=== PATIENT | male | born 1970 | race Caucasian/White ===

== ENCOUNTER → 2017-04-06 | Outpatient (CLI) | payer BC ==
--- NOTE | 2017-04-06 14:15 | RADIOLOGY REPORT (SQ) ---
EXAM DESCRIPTION: MRI LT LOWER JOINT WITHOUT COMPLETED DATE/TIME: 04/06/2017 1:35 pm REASON FOR STUDY: BUCKET HANDLE TEAR OF MEDIAL MENISCUS LEFT KNEE S83.212D BUCKET-HNDL TEAR OF MEDI AL MENSC, CRNT INJURY, L KN COMPARISON: None. TECHNIQUE: Leftknee images acquired and stored on PACS. Multiplanar images include fat sensitive se quences as T1, water sensitive sequences as FST2 or STIR, cartilage sensitive sequences as FSPD, and gradient echo sequences. LIMITATIONS: None. FINDINGS: JOINT AND BURSAE: Moderate joint effusion. Ovoid probable loose body in the anterior join t measures over 1 cm. BONE CORTEX AND MARROW: No fracture or worrisome bone lesion. Subcentimeter geographic hyperintense T2 slightly lobulated lesion in the femoral shaft laterally. Probable enchondroma. ACL: Intact. No degeneration or ganglion cyst. PCL: Intact. MCL: Intact. LCL: Intact. MEDIAL MENISCUS: Extensive tear. Prominent horizontal portion extends throughout the posterior menis cus root, posterior horn and into the body. Breech of the inferior articular surface. There is lobu lated tissue projecting posteriorly into the notch which may represent a displaced meniscus fragment. LATERAL MENISCUS: No tears. No abnormal signal. MEDIAL COMPARTMENT: No chondral defects. LATERAL COMPARTMENT: No chondral defects. PATELLA: No chondromalacia. No subchondral cysts. Medial and lateral retinacula intact. EXTENSOR MECHANISM: Intact. Quadriceps and patella tendons normal. SOFT TISSUES: Small Logan's cyst. Appropriate vascular flow voids. OTHER: No other significant finding. IMPRESSION: 1. Extensive medial meniscus tear with probable centrally displaced bucket-handle fragme nt. 2. Joint effusion. Probable loose bodies in the joint. TECHNICAL DOCUMENTATION: JOB ID: [id number]- All Rights Reserved
== END ==
LOC: RAD 12:24
PROVIDERS: ATTEND Family Medicine
DX: S83.212D Bucket-handle tear of medial meniscus, current injury, left knee, subsequent encounter (principal); M25.462 Effusion, left knee

== ENCOUNTER 2017-04-21 10:32 | Day surgery (SDC) | payer BC ==
[2017-04-18 12:01] LABS: APPEARANCE,URINE CLEAR; BILIRUBIN,URINE NEGATIVE (NEGATIVE); GLUCOSE, URINE NEGATIVE (NEGATIVE); KETONES,URINE NEGATIVE (NEGATIVE); LEUKOCYTE ESTERASE,URINE NEGATIVE (NEGATIVE); NITRITE,URINE NEGATIVE (NEGATIVE); PROTEIN,URINE NEGATIVE (NEGATIVE); URINE SPECIFIC GRAVITY 1.013; UROBILINOGEN,URINE NEGATIVE mg/dL (<2.0)
[2017-04-18 12:10] LABS: ABSOLUTE EOSINOPHILS # (AUTO) 0.1 10^3/uL (0.0-0.6); ABSOLUTE LYMPHOCYTES (AUTO) 1.3 10^3/uL (0.5-4.7); ABSOLUTE MONOCYTES (AUTO) 0.8 10^3/uL (0.1-1.4); ABSOLUTE NEUT (AUTO) 8.8 10^3/uL (1.7-8.2); BASOPHILS % (AUTO) 0.3 % (0-2); HEMATOCRIT 45.2 % (37.9-51.0); HEMOGLOBIN 16.4 g/dL (13.5-17.0); LYMPHOCYTES % (AUTO) 11.4 % (13-45); MEAN CORPUSCULAR HEMOGLOBIN 31.3 pg (27.0-33.4); MEAN CORPUSCULAR HGB CONC 36.1 g/dL (32.0-36.0); MEAN CORPUSCULAR VOLUME 87 fl (80-97); MONOCYTES % (AUTO) 7.6 % (3-13); RED BLOOD COUNT 5.23 10^6/uL (4.35-5.55); RED CELL DISTRIBUTION WIDTH 13.1 % (11.5-14.0); SEGMENTED NEUTROPHILS % (AUTO) 79.7 % (42-78); WHITE BLOOD COUNT 11.1 10^3/uL (4.0-10.5)
[2017-04-18 12:35] LABS: ANION GAP 15 (5-19); BLOOD UREA NITROGEN 11 mg/dL (7-20); CALCIUM 9.6 mg/dL (8.4-10.2); CARBON DIOXIDE 27 mmol/L (22-30); CHLORIDE 101 mmol/L (98-107); CREATININE RESULT 0.77 mg/dL (0.52-1.25); GLUCOSE 93 mg/dL (75-110); POTASSIUM 4.3 mmol/L (3.6-5.0); SODIUM 142.6 mmol/L (137-145)
--- NOTE | 2017-04-18 13:04 | EKG REPORT ---
SEVERITY:- NORMAL ECG - SINUS RHYTHM : Confirmed by: bD Henriquez MD 18-Apr-2017 13:03:38
--- NOTE | 2017-04-18 14:57 | RADIOLOGY REPORT (SQ) ---
EXAM DESCRIPTION: CHEST PA/LATERAL COMPLETED DATE/TIME: 04/18/2017 11:41 am REASON FOR STUDY: PRE OP COMPARISON: None. EXAM PARAMETERS: NUMBER OF VIEWS: two views TECHNIQUE: Digital Frontal and Lateral radiographic views of the chest acquired. RADIATION DOSE: NA LIMITATIONS: none FINDINGS: LUNGS AND PLEURA: No opacities, masses or pneumothorax. No pleural effusion. MEDIASTINUM AND HILAR STRUCTURES: No masses or contour abnormalities. HEART AND VASCULAR STRUCTURES: Heart normal size. No evidence for failure. BONES: No acute findings. HARDWARE: None in the chest. OTHER: No other significant finding. IMPRESSION: NO SIGNIFICANT RADIOGRAPHIC FINDING IN THE CHEST. TECHNICAL DOCUMENTATION: JOB ID: [id number] [employer]- All Rights Reserved
[~2017-04-21 10:32] MED LIST: BUPIVACAINE HCL 0.5 % INJ/PF 30 ML SDV ONE; CEFAZOLIN 2 GM/D5W RTU 2 GM/50 ML RTUPB IV PRN; LACTATED RINGERS 1000 ML IV PRN; LIDOCAINE 0.5% INJ-PF (5 MG/ML) 50 ML SDV SUBCUT PRN
[2017-04-21] MEDS ORDERED: FAMOTIDINE INJ/PF 20 MG/2 ML SDV IV ONE (11:59)
[2017-04-21] MEDS ORDERED: SCOPOLAMINE HYDROBROMIDE 1.5 MG PATCH.TD72 ONE (11:59)
[2017-04-21] MEDS ORDERED: MIDAZOLAM 2 MG/2 ML INJ ONE ×2 (11:59→12:38)
[2017-04-21] MEDS ORDERED: PROPOFOL INJ 200 MG/20 ML VIAL IV ONE (12:38)
[2017-04-21] MEDS ORDERED: ONDANSETRON HCL INJ/PF 4 MG/2 ML SDV ONE (12:38)
[2017-04-21] MEDS ORDERED: HYDROMORPHONE HCL INJ/PF 2 MG/ML AMPULE ONE (12:39)
[2017-04-21] MEDS ORDERED: ACETAMINOPHEN 100 ML IV ONE (12:39)
[2017-04-21] MEDS ORDERED: FENTANYL CITRATE INJ/PF 100 MCG/2 ML AMPUL IV PRN ×3 (13:52)
[2017-04-21] MEDS ORDERED: DIPHENHYDRAMINE HCL 50 MG/ML VIAL IV PRN (13:52)
[2017-04-21] MEDS ORDERED: MEPERIDINE HCL/PF INJ 25 MG/1 ML DISP.SYRIN IV PRN (13:52)
[2017-04-21] MEDS ORDERED: PROMETHAZINE HCL INJ 25 MG/1 ML VIAL IV PRN (13:52)
--- NOTE | 2017-04-21 14:52 | Operative Report ---
Operative Report DATE OF SURGERY: 04/21/17 PREOPERATIVE DIAGNOSIS: Left knee medial meniscus bucket-handle tear POSTOPERATIVE DIAGNOSIS: Same OPERATION: Left knee arthroscopic partial medial meniscectomy SURGEON: RITU WAKEFIELD ANESTHESIA: GA TISSUE REMOVED OR ALTERED: Meniscal shavings COMPLICATIONS: None ESTIMATED BLOOD LOSS: Less than 10 mL INTRAOPERATIVE FINDINGS: As above PROCEDURE: Patient was brought to the operating room and induced and intubated in supine position. A tourniquet was applied to the left lower extremity. Timeout was done identifying the left knee was the correct site. .25% plain Marcaine was injected into anticipated portal sites. The extremity was elevated and the tourniquet was inflated at 300 mmHg. 11 blade was used to establish the anterolateral portal. Scope was introduced. At this point I established my anteromedial portal. Diagnostic scope was done showing the patient had pristine patellofemoral compartment with no evidence of chondromalacia. I turned my attention to the medial compartment where I noted a bucket-handle complex tear of the medial meniscus. Bucket-handle piece was in the notch. Pictures were taken showing the tear. I used the meniscal biter and 4.0mm shaver to resect majority of the mid body to posterior horn of the medial meniscus. Shaver smooth out the edges of the meniscus which gave a good stable construct. I this point redirected my camera to the notch and visualized the anterior cruciate ligament graft which was intact as well as the PCL which showed to be intact. I then placed the extremity in a [id number] and at this point saw the lateral meniscus was intact with no noticeable tears. Popliteal hiatus was intact. Articular cartilage also was pristine with no evidence of chondromalacia or wear. At this point the fluid of the knee was removed and I proceeded to close the 2 portal sites with 3-0 nylon. Tourniquet was let down. The portal sites were covered with Xeroform 4 x 4 dressing and ABD pad followed by a soft roll. I overwrapped it with an Tor bandage. Drapes were cut and removed. Patient was successfully extubated and sent to PACU in stable condition.
[2017-04-21] MEDS ORDERED: OXYCODONE-ACETAMINOPHEN 5-325 MG TABLET PO PRN (15:05)
--- NOTE | 2017-04-21 15:05 | PDOC DISCHARGE SUMMARY ---
Discharge Summary (SDC) - Discharge Final Diagnosis: Left knee partial medial meniscectomy Date of Surgery: 04/21/17 Discharge Date: 04/21/17 Condition: Good Treatment or Instructions: Patient instructed to follow up in 10-14 days. Patient instructed to keep dressing dry clean and intact for 4 days and then allowed to remove. At that point patient can shower and apply Band-Aids as needed. Patient can weight-bear as tolerated and do range of motion exercises as tolerated. Crutches for support and safety. Can wean crutches once stable on his feet. Patient instructed to call the office if patient develops fevers chills redness and drainage from the surgical sites. Prescriptions: Tramadol HCl [Ultram 50 mg Tablet] 50 mg PO Q6HP PRN #40 tablet PRN Reason: Referrals: ABEBE PHILLIPS DO [Primary Care Provider] - Discharge Diet: As Tolerated Respiratory Treatments at Home: Deep Breathing/Coughing Discharge Activity: No Driving - While taking narcotics, Keep Legs Elevated, No Lifting/Push/Pulling Home Care Assistance: None Needed Adaptive Devices on Discharge: Axillary Crutches - If needed Report the Following to Your Physician Immediately: Shortness of Breath, Vomiting, Increase in Pain, Fever over 101 Degrees, Unusual Bleeding, Redness, Swelling, Warmth, Increased Soreness, Drainage-Yellow, Drainage-Slater, Drainage- Green, Drainage-Foul Smelling
[2017-04-21] MEDS ORDERED: OXYCODONE-ACETAMINOPHEN 5-325 MG TABLET ONE (15:09)
[2017-04-21] MEDS ORDERED: ONDANSETRON 4 MG TAB.RAPDIS ONE (16:32)
[2017-04-21 16:49] VITALS: BP 135/91
== END 2017-04-21 16:40 | disposition home or self-care (01) ==
LOC: OROUT 10:32
PROVIDERS: ATTEND Orthopaedic Surgery
PROC: 0SBD4ZZ Excision of Left Knee Joint, Percutaneous Endoscopic Approach (ICD-10-PCS; principal; 2017-04-21 12:45)
DX: S83.212D Bucket-handle tear of medial meniscus, current injury, left knee, subsequent encounter (principal); Z79.899 Other long term (current) drug therapy; X58.XXXD Exposure to other specified factors, subsequent encounter; K21.9 Gastro-esophageal reflux disease without esophagitis
CPT/HCPCS: 93005; 36415; 85025; 80048; 81001; 71020; 93010; 29881; J2250; S0119; J1170; J2405; J2704; S0028; J0690; J0131; 1400

== ENCOUNTER 2018-07-24 10:10 | Emergency (ER) | payer OTHER, BC ==
[2018-07-24 10:16] VITALS: BP 154/95
[2018-07-24] MEDS ORDERED: KETOROLAC TROMETHAMINE 60 MG/2 ML SDV IM ONE (10:44)
[2018-07-24] MEDS ORDERED: LIDOCAINE 1% INJ-PF (10 MG/ML) 30 ML SDV INJ ONE ×2 (10:45→13:15)
[2018-07-24] MEDS ORDERED: DIPH/PERTUSS(ACELL)/TETANUS VAC/PF 0.5 ML SYR (>=10YO) IM ONE (10:47)
--- NOTE | 2018-07-24 10:47 | ER Document Report ---
ED Medical Screen (RME) - General Chief Complaint: Knee Injury Stated Complaint: RIGHT KNEE INJURY Time Seen by Provider: 07/24/18 10:39 Primary Care Provider: ABEBE PHILLIPS DO [Primary Care Provider] - Follow up as needed Notes: Patient is a 47-year-old male that presents to the emergency department for chief complaint of right knee injury. Patient reports that just prior to ED arrival he was working on tobacco, and his vest got caught in the liver, the machine pushed him up against it, and lacerated the back of his right knee. He initially went to urgent care but they advised to come to the ED. ROS: Other than noted above, the 12 point review of systems was reviewed with the patient and were negative, all pertinent findings are included in the HPI. PHYSICAL EXAMINATION: Vital signs reviewed. GENERAL: Well-appearing, well-nourished and in no acute distress. HEAD: Atraumatic, normocephalic. EYES: Pupils equal round extraocular movements intact, conjunctiva are normal. ENT: Nares patent NECK: Normal range of motion CV: Heart regular rate and rhythm LUNGS: No respiratory distress Musculoskeletal: Right knee is mainly tender in the medial aspect of the joint, there are superficial abrasions noted over the patella, and there is a deeper laceration measuring about 2 cm in the posterior lateral aspect of the knee. NEUROLOGICAL: Normal speech PSYCH: Normal mood, normal affect. MDM: Patient seen and examined for rapid initial assessment. Vital signs reviewed. A comprehensive ED assessment and evaluation of the patient, analysis of test results and completion of the medical decision making process will be conducted by additional ED providers. *Note is created using voice recognition software and may contain spelling, syntax or grammatical errors. TRAVEL OUTSIDE OF THE [place] IN LAST 30 DAYS: No - Related Data Allergies/Adverse Reactions: No Known Allergies Allergy (Verified 07/24/18 10:11) Physical Exam - Vital signs Vitals: Temp Pulse Resp BP Pulse Ox 98.2 F 94 16 154/95 H 99 07/24/18 10:14 07/24/18 10:14 07/24/18 10:14 07/24/18 10:14 07/24/18 10:14 Course - Vital Signs Vital signs: Temp Pulse Resp BP Pulse Ox 98.2 F 94 16 154/95 H 99 07/24/18 10:14 07/24/18 10:14 07/24/18 10:14 07/24/18 10:14 07/24/18 10:14 Doctor's Discharge - Discharge Referrals: ABEBE PHILLIPS, [Primary Care Provider] - Follow up as needed
--- NOTE | 2018-07-24 11:22 | RADIOLOGY REPORT (SQ) ---
EXAM DESCRIPTION: KNEE RIGHT 3 VIEWS COMPLETED DATE/TIME: 07/24/2018 11:12 am REASON FOR STUDY: right knee pain, injury COMPARISON: None. NUMBER OF VIEWS: Three views. TECHNIQUE: AP, lateral, and sunrise patella radiographic images acquired of the right knee. LIMITATIONS: None. FINDINGS: MINERALIZATION: Normal. BONES: No acute fracture or dislocation. No worrisome bone lesions. JOINT: No effusion. SOFT TISSUES: Gas in the deep soft tissues posterior distal femur. No foreign body identified. OTHER: No other significant finding. IMPRESSION: Soft tissue injury. TECHNICAL DOCUMENTATION: JOB ID: [id number] [employer]- All Rights Reserved Reading location - IP/workstation name: [email or web address]
[2018-07-24] MEDS ORDERED: MORPHINE SULFATE 10 MG/ML INJ IM ONE (12:54)
--- NOTE | 2018-07-24 14:20 | ER Document Report ---
ED General - General Chief Complaint: Knee Injury Stated Complaint: RIGHT KNEE INJURY Time Seen by Provider: 07/24/18 10:39 Primary Care Provider: ABEBE PHILLIPS DO [ACTIVE STAFF] - Follow up as needed Notes: Patient is a 47-year-old male that presents to the emergency department for chief complaint of right knee injury. Patient reports that just prior to ED arrival he was working with heavy equipment and his vest got caught in the lever, the machine pushed him up against it, and lacerated the back of his right knee. He initially went to urgent care but they advised to come to the ED. he complains of pain, a cut on the posterior fossa of his right knee, limited range of motion, and bleeding. He denies passing out, denies falling or hitting his head TRAVEL OUTSIDE OF THE [place] IN LAST 30 DAYS: No - Related Data Allergies/Adverse Reactions: No Known Allergies Allergy (Verified 07/24/18 10:11) Past Medical History - Social History Smoking Status: Never Smoker Chew tobacco use (# tins/day): No Frequency of alcohol use: None Drug Abuse: None Family History: None Patient has suicidal ideation: No Patient has homicidal ideation: No Renal/ Medical History: Denies: Hx Peritoneal Dialysis Review of Systems - Review of Systems Constitutional: No symptoms reported EENT: No symptoms reported Cardiovascular: No symptoms reported Respiratory: No symptoms reported Gastrointestinal: No symptoms reported Genitourinary: No symptoms reported Male Genitourinary: No symptoms reported Musculoskeletal: See HPI Skin: See HPI Hematologic/Lymphatic: No symptoms reported Neurological/Psychological: See HPI Physical Exam - Vital signs Vitals: Temp Pulse Resp BP Pulse Ox 98.2 F 94 16 154/95 H 99 07/24/18 10:14 07/24/18 10:14 07/24/18 10:14 07/24/18 10:14 07/24/18 10:14 - Notes Notes: PHYSICAL EXAMINATION: Reviewed vital signs and charting by RN GENERAL: Alert, interacts well. No acute distress. HEAD: Normocephalic, atraumatic. EYES: Pupils equal, round. Extraocular movements intact. EXTREMITIES: Moves all 4 extremities spontaneously. Edema of right knee with laceration and posterior fossa right leg approximately 3 cm long actively losing blood BACK: no cervical, thoracic, lumbar midline tenderness. No saddle anesthesia, normal distal neurovascular exam. NEUROLOGICAL: Alert and oriented x3. Normal speech. PSYCH: Normal affect, normal mood. SKIN: Warm, dry, normal turgor. See above Course - Re-evaluation Re-evalutation: 07/24/18 17:07 X-ray showed patellar fracture, I called to Dr. Frederick who is on-call who recommended covering for MSSA after looking at the x-rays. CTA angios was completed to ensure there is no arterial injury with the popliteal or any of the major vessels. That was negative for any extravasation concerning injuries. Bleeding is most likely venous in nature. Four 4-0 Ethilon sutures placed and patient tolerated procedure well knee was placed in an immobilizer after dressing. Patient placed on Keflex for 1 week. I gave him a short course of pain control. I gave patient strict return precautions and what to look for in case a hematoma starts to develop. She is safe and stable for discharge. - Vital Signs Vital signs: Temp Pulse Resp BP Pulse Ox 98.2 F 94 16 154/95 H 99 07/24/18 10:14 07/24/18 10:14 07/24/18 10:14 07/24/18 10:14 07/24/18 10:14 Procedures - Immobilization Right Knee Pre-Proc Neuro Vasc Exam: Normal Immobilizer type: Knee immobilizer Performed by: PCT Post-Proc Neuro Vasc Exam: Normal Alignment checked and good: Yes - Laceration/Wound Repair Right Posterior Knee Wound length (cm): 3 Wound's Depth, Shape: Superficial Laceration pre-procedure: Sterile PPE donned Anesthetic type: 1% Lidocaine Wound explored: Clean Wound Debrided: Minimal Wound Repaired With: Sutures Suture Size/Type: 4:0, Ethilon Number Deep Layer Sutures: 4 Post-procedure wound care: Sterile dressing applied, Splint applied Post-procedure NV exam normal: Yes Complications: No Discharge - Discharge Clinical Impression: Laceration, Nausea Patella fracture Qualifiers: Encounter type: initial encounter Fracture type: open Open fracture type: open type I or II Fracture morphology: other fracture Laterality: right Qualified Code(s): S82.091B - Other fracture of right patella, initial encounter for open fracture type I or II Condition: Good Disposition: HOME, SELF-CARE Instructions: Antibiotic Ointment Protection ([facility]), Tetanus Immunization Given ([facility]), Use of Crutches ([facility]), Ice & Elevation ([facility]), Knee Immobilizing Splint ([facility] ), Laceration Care ([facility]) Additional Instructions: You were seen in the emergency department this afternoon for trauma to your knee. X-ray showed that you do have a fracture of your kneecap. Because you had a laceration this is considered an open fracture and put you at a higher risk for infection. Therefore, we have prescribed you antibiotics after discussing this with the orthopedist, Dr. Rosas. We are giving you Keflex that you will take 4 times a day for the next 7 days. Also, we did a CT angiogram which did not show any evidence of a vascular injury to any of your arteries. This is all very reassuring please still be cognizant and diligent with respect to paying attention to the wound. The biggest risk factor, like we talked about, is the potential for hematoma. If you start to feel more pressure underneath the wound, it starts to get red and swollen, or you get excruciating pain out of proportion to what is expected please return to the emergency department for reevaluation. Please follow-up with Dr. Frederick in the next 24 hours to evaluate the integrity of your knee. If you develop fever over the next couple of days, see purulent discharge coming from the wound, have any of the symptoms described above, or have any other concerns please return to the emergency department for evaluation. I have given you a short course of pain medication to help bridge you over the next couple of days during this acute phase. Also, please take Motrin 600 mg every 6 hours with food and/or milk and/or Tylenol every 6 hours for pain. Forms: Return to Work Referrals: ABEBE PHILLIPS DO [ACTIVE STAFF] - Follow up as needed BECKA FREDERICK DO [ACTIVE STAFF] - Follow up as needed
[2018-07-24] MEDS ORDERED: CEPHALEXIN 500 MG CAPSULE PO ONE (14:23)
[2018-07-24] MEDS ORDERED: ONDANSETRON 4 MG TAB.RAPDIS PO ONE (14:42)
--- NOTE | 2018-07-24 15:00 | ER Document Report ---
Doctor's Note Notes: I personally and independently obtained patient history and examined the patient in conjunction with the APC and agree with the assessment, treatment plan and disposition of the patient as recorded by the APC, and have reviewed the APC's note. 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 Currently rates his pain as a 9 out of 10. ROS: Constitutional: Negative for fever. Cardiovascular: Negative for chest pain. Respiratory: Negative for shortness of breath. Gastrointestinal: Negative for vomiting or abdominal pain Musculoskeletal: Positive for right leg pain. Skin: Negative for rash. Neurological: Negative for weakness or numbness. Other than noted above, the 12 point review of systems was reviewed with the patient and were negative, all pertinent findings are included in the HPI. PHYSICAL EXAMINATION: Vital signs reviewed, nursing noted reviewed. GENERAL: Well-appearing, well-nourished and in no acute distress. HEAD: Atraumatic, normocephalic. EYES: Eyes appear normal, conjunctiva are normal. ENT: nares patent, oropharynx clear without exudates. Moist mucous membranes. NECK: Normal range of motion, supple without lymphadenopathy LUNGS: Breath sounds clear to auscultation bilaterally and equal. No wheezes rales or rhonchi. HEART: Regular rate and rhythm without murmurs ABDOMEN: Soft, nontender, normoactive bowel sounds. No rebound, guarding, or rigidity. No masses appreciated. EXTREMITIES: There is a 2 cm puncture wound to the patient's posterior lateral aspect of his right knee, tenderness to palpation over the knee in general, particularly over the medial aspect anteriorly, and over the patellar augment. NEUROLOGICAL: No focal neurological deficits. Moves all extremities spontaneously Motor and sensory grossly intact on exam. PSYCH: Normal mood, normal affect. SKIN: Warm, Dry, normal turgor, no rashes or lesions noted on exposed skin MEDICAL DECISION MAKING: Patient seen and examined, vital signs reviewed, x-ray obtained of the knee, and it did demonstrate a nondisplaced to minimally displaced fracture of the inferior pole the patella, this was discussed with orthopedics, recommended knee immobilizer and follow-up, patient's wound was explored, there was breach of the fascial plane, to definitively rule out arterial injury, although there is no pulsatile bleeding, the complete depth of the injury is not completely discernible on physical exam will obtain CTA of the knee, patient made aware and agreeable. CTA of the lower extremity was negative for extravasation or evidence of vascular injury, no large hematoma, subcutaneous gas noted, which is consistent with the patient's puncture wound, and gas tracking along fascial planes, wound was sutured closed, I have the patient follow-up for suture removal, given strict return precautions. Please review detail APC documentation. *Note is created using voice recognition software and may contain spelling, syntax or grammatical errors. Knee X-Ray 07/24/18 10:45 IMPRESSION: Soft tissue injury. Knee X-Ray 07/24/18 10:45 IMPRESSION: Soft tissue injury. Lower Extremity CTA 07/24/18 14:45 IMPRESSION: 1. NO EVIDENCE OF CONTRAST EXTRAVASATION OR OTHER INDICATION OF VASCULAR INJURY. 2. PUNCTURE WOUND WITH EXTENSIVE GAS IN THE SOFT TISSUES EXTENDING INTO DEEP SOFT TISSUES POSTERIOR TO THE DISTAL FEMUR. NO FOREIGN BODY OR EVIDENCE OF SIGNIFICANT HEMATOMA.
[2018-07-24 15:44] LABS: ANION GAP 11 (5-19); BLOOD UREA NITROGEN 11 mg/dL (7-20); CALCIUM 9.8 mg/dL (8.4-10.2); CARBON DIOXIDE 26 mmol/L (22-30); CHLORIDE 102 mmol/L (98-107); GLUCOSE 102 mg/dL (75-110); POTASSIUM 3.7 mmol/L (3.6-5.0); SODIUM 139.4 mmol/L (137-145)
--- NOTE | 2018-07-24 16:11 | RADIOLOGY REPORT (SQ) ---
EXAM DESCRIPTION: CTA RIGHT LOWER EXTREMITY COMPLETED DATE/TIME: 07/24/2018 3:59 pm REASON FOR STUDY: puncture wound COMPARISON: None. TECHNIQUE: Postcontrast axial imaging performed through the right knee with reformatted coronal and sagittal imaging windowed for bone and soft tissues. Images saved to PACS. All CT scanners at this facility use dose modulation, iterative reconstruction, and/or weight based d osing when appropriate to reduce radiation dose to as low as reasonably achievable (ALARA). [facility]: Dose Right [facility]: CareDose [facility]: Dose Right [facility]: Teradose 4D [facility]: [employer] CONTRAST TYPE AND DOSE: contrast/concentration: Isovue 350.00 mg/ml; Total Contrast Delivered: 75.0 ml; Total Saline Delivered: 75.0 ml RENAL FUNCTION: None required. The patient is less than 50 years old. LIMITATIONS: None. RADIATION DOSE: CT Rad equipment meets quality standard of care and radiation dose reduction techniq ues were employed. CTDIvol: 4.1 - 70.9 mGy. DLP: 154 mGy-cm.mGy. FINDINGS: VASCULAR: Contrast is present in the distal femoral artery, the popliteal artery, the tib ioperoneal trunk, and the proximal posterior tibial, anterior tibial, and peroneal arteries. No evid ence of contrast extravasation. No occlusion or stenosis. SOFT TISSUES: Gas in the soft tissues secondary to a puncture wound lateral to the distal femur. Gas extends into the deep soft tissues posterior to the distal femur. The superior extent is not includ ed on the images. No radiopaque foreign body. No significant hematoma. BONES: No acute fracture. No dislocation. MINERALIZATION: Normal. ENHANCEMENT: No abnormal enhancement. OTHER: No other significant finding. IMPRESSION: 1. NO EVIDENCE OF CONTRAST EXTRAVASATION OR OTHER INDICATION OF VASCULAR INJURY. 2. PUNCTURE WOUND WITH EXTENSIVE GAS IN THE SOFT TISSUES EXTENDING INTO DEEP SOFT TISSUES POSTERIOR T O THE DISTAL FEMUR. NO FOREIGN BODY OR EVIDENCE OF SIGNIFICANT HEMATOMA. TECHNICAL DOCUMENTATION: JOB ID: [id number] Quality ID # [id number]: Final reports with documentation of one or more dose reduction techniques (e.g., Au tomated exposure control, adjustment of the mA and/or kV according to patient size, use of iterative reconstruction technique) 2010 [employer]- All Rights Reserved Reading location - IP/workstation name: [email or web address]
[2018-07-24] MEDS ORDERED: ONDANSETRON ODT 4 MG TAB (6 TAB/ER DISP) PO PRN (16:59)
== END 2018-07-24 17:29 | disposition home or self-care (01) ==
LOC: ER 10:10
DX: S82.001B Unspecified fracture of right patella, initial encounter for open fracture type I or II (principal); W22.8XXA Striking against or struck by other objects, initial encounter; Y93.89 Activity, other specified; Y99.0 Civilian activity done for income or pay
CPT/HCPCS: 99284; 96372; 90471; 36415; 80048; 73562; 73706; 90715; 12002; L1830; J1885; S0119; J3490; J2270